=== PATIENT | female | born 1970 | race Caucasian/White ===

== ENCOUNTER 2016-03-12 06:29 | Emergency (ER) | payer OTHER ==
[~2016-03-12] VITALS: Ht 165.1 cm; Wt 62.1 kg
[~2016-03-12 06:29] MED LIST: MULT-884 PO
[2016-03-12 06:35] VITALS: TEMP 36.8; Ht 165.1 cm; Wt 62.1 kg
[2016-03-12] MEDS ORDERED: SODIUM CHLORIDE 0.9% 1000ML 1,000 ML IV SCH (07:00)
--- NOTE | 2016-03-12 07:05 | EMERGENCY ROOM VISIT NOTE ---
History First contact with patient: 06:39 Chief Complaint: URINARY SYMPTOMS Stated Complaint: BLOOD IN URINE,BLADDER PAIN Nursing Triage Summary: pt had uti 2 wks ago, pt c/o blood and red tissue in her urine with frequency and heavy feeling where her bladder is History of Present Illness The patient is a 45 year old female who presents to the Emergency Room with complaints of urinary symptoms. 2 weeks ago, she was diagnosed with a UTI. At that time her presenting complaint was hematuria. She was treated with bactrim. She was doing well until last night, when she suddenly felt the urge to urinate 15 times overnight. She noted on 2 occasions that when she looked into the toilet bowl and the urine was blood tinged with bloody strings. She notes explicitly that she thinks this is urinary and not vaginal discharge. She denies any new vaginal discharge. She also denies any dysuria or burning. She has not had fevers, but does not some nightsweats, which she is unsure is related to urinary tract infection vs being perimenopausal. She does not a dull bilateral CVA dull ache 04/21. She has ongoing low Her appetite has been good. She has chronic issues with constipation. She has not had diarrhea, melena or blood in the stool. Review of Systems A 10 point review of systems was negative unless stated above. Past Medical/Surgical History Medical Problems: (1) Miscarriage (2) Surrogate (3) Vaginal delivery Surgical Problems: (1) H/O laparoscopy Family History Diabetes mellitus Heart disease Mother: Rheumatoid arthritis Social History Smoking Status: Never Smoker Smokeless Tobacco Use: No Alcohol Use: none Drug Use: none Marital Status: , in relationship Housing Status: lives with family Occupation Status: employed Social History: 8 pregnancies; 5 her own pregnancies, 3 surrogate pregnancies Current/Historical Medications Scheduled Cephalexin Monohydrate (Keflex), 500 MG PO BID Cholecalciferol (Vitamin D), 1 TAB PO DAILY Multiple Vitamin (Multi Vitamin Daily), 1 TAB PO DAILY Probiotic Product (Probiotic), 1 CAP PO DAILY Allergies Coded Allergies: Levofloxacin (Verified Allergy, Mild, ITCHING, 03/12/16) ITCHING AND REDNESS AT IV SITE SOON MED WAS HUNG-PER PT CHART Physical Exam Vital Signs Date Time Temp Pulse Resp B/P Pulse Ox O2 Delivery O2 Flow Rate FiO2 03/12/16 10:31 88 16 125/79 98 03/12/16 08:34 83 16 136/99 97 Room Air 03/12/16 06:35 36.8 95 18 137/92 99 Room Air Physical Exam Constitutional: Vital signs as above were reviewed. Eyes: Pupils equal, round, and reactive to light. Extraocular muscles are intact. No proptosis. No photophobia. ENT: Mucous membranes are moist. Oropharynx is clear. No sinus tenderness. TMs are clear bilaterally. Cardiovascular: Heart with a regular rate and rhythm. Pulses are palpable and symmetric in all 4 extremities. No pedal edema appreciated. Respiratory: Lungs clear to auscultation bilaterally. No wheezes, rales, or rhonchi appreciated. No accessory muscle use. No retractions. No increased work of breathing. GI: Abdomen soft, nontender, nondistended. Normal active bowel sounds. No abdominal hernias appreciated. No rebound. No guarding. Moderate suprapubic tenderness to deep palpation : No CVA tenderness appreciated. Musculoskeletal: No midline cervical or vertebral tenderness. No gross deformities. No bony tenderness. No calf swelling or tenderness. Integumentary: Warm, dry, no rashes appreciated. Neurological: Patient awake, alert, and oriented x 3. Cranial nerves two through 12 grossly intact. Motor 5 out of 5 strength bilateral upper and lower extremities. Lymph: No cervical lymphadenopathy appreciated. Medical Decision & Procedures ER Provider Diagnostic Interpretation: RENAL ULTRASOUND HISTORY: Hematuria bladder pain. COMPARISON: None. FINDINGS: Right kidney: 11.4 cm. No hydronephrosis. Normal corticomedullary differentiation and cortical thickness. Left kidney: 11.7 cm. No hydronephrosis. Possible patchy increased cortical echogenicity is again noted. Normal cortical thickness. Bladder: No bladder wall thickening. The bilateral ureteral jets were identified. IMPRESSION: 1. No change from the prior study. 2. No hydronephrosis. 3. Mild patchy areas of increased cortical echogenicity within the left kidney remains unchanged. Therefore, this is likely chronic. Electronically signed by: Young Spear M.D. 03/12/2016 9:45 AM Dictated Date/Time: 03/12/2016 9:41 AM Laboratory Results 03/12/16 07:15 Red Blood Count 4.78, Mean Corpuscular Volume 89.5, Mean Corpuscular Hemoglobin 32.0, Mean Corpuscular Hemoglobin Concent 35.7, Mean Platelet Volume 9.8, Neutrophils (%) (Auto) 47.2, Lymphocytes (%) (Auto) 24.3, Monocytes (%) (Auto) 20.3, Eosinophils (%) (Auto) 7.0, Basophils (%) (Auto) 1.0, Neutrophils # (Auto ) 2.71, Lymphocytes # (Auto) 1.40, Monocytes # (Auto) 1.17, Eosinophils # (Auto ) 0.40, Basophils # (Auto) 0.06 03/12/16 07:15 Test 03/12/16 07:00 03/12/16 07:15 03/12/16 08:44 Urine Color YELLOW Urine Appearance CLEAR (CLEAR) Urine pH 6.0 (4.5-7.5) Urine Specific [place] 1.001 (1.000-1.030) Urine Protein NEG (NEG) Urine Glucose (UA) NEG (NEG) Urine Ketones NEG (NEG) Urine Occult Blood TRACE (NEG) Urine Nitrite NEG (NEG) Urine Bilirubin NEG (NEG) Urine Urobilinogen NEG (NEG) Urine Leukocyte Esterase NEG (NEG) Urine WBC (Auto) 1-5 /hpf (0-5) Urine RBC (Auto) 0-4 /hpf (0-4) Urine Hyaline Casts (Auto) 0 /lpf (0-5) Urine Epithelial Cells (Auto) 10-20 /lpf (0-5) Urine Bacteria (Auto) NEG (NEG) White Blood Count 5.75 K/uL (4.8-10.8) Red Blood Count 4.78 M/uL (4.2-5.4) Hemoglobin 15.3 g/dL (12.0-16.0) Hematocrit 42.8 % (37-47) Mean Corpuscular Volume 89.5 fL (80-100) Mean Corpuscular Hemoglobin 32.0 pg (25-34) Mean Corpuscular Hemoglobin Concent 35.7 g/dl (32-36) Platelet Count 268 K/uL (130-400) Mean Platelet Volume 9.8 fL (7.4-10.4) Neutrophils (%) (Auto) 47.2 % Lymphocytes (%) (Auto) 24.3 % Monocytes (%) (Auto) 20.3 % Eosinophils (%) (Auto) 7.0 % Basophils (%) (Auto) 1.0 % Neutrophils # (Auto) 2.71 K/uL (1.4-6.5) Lymphocytes # (Auto) 1.40 K/uL (1.2-3.4) Monocytes # (Auto) 1.17 K/uL (0.11-0.59) Eosinophils # (Auto) 0.40 K/uL (0-0.5) Basophils # (Auto) 0.06 K/uL (0-0.2) RDW Standard Deviation 42.2 fL (36.4-46.3) RDW Coefficient of Variation 12.9 % (11.5-14.5) Immature Granulocyte % (Auto) 0.2 % Immature Granulocyte # (Auto) 0.01 K/uL (0.00-0.02) Anion Gap 10.0 mmol/L (3-11) Est Creatinine Clear Calc Drug Dose 91.7 ml/min Estimated GFR () 121.0 Estimated GFR (Non- 104.4 BUN/Creatinine Ratio 14.4 (10-20) Calcium Level 9.4 mg/dl (8.5-10.1) Prothrombin Time 11.0 SECONDS (9.0-12.0) Prothromb Time International Ratio 1.0 (0.9-1.1) Activated Partial Thromboplast Time 30.8 SECONDS (21.0-31.0) Partial Thromboplastin Ratio 1.2 Medications Administered Medications (Trade) Dose Ordered Sig/Brittany Route Start Time Stop Time Status Last Admin Dose Admin Sodium Chloride (Nss 1000ml) 1,000 ml @ 999 mls/hr Q1H1M IV 03/12/16 07:00 03/12/16 10:58 DC 03/12/16 07:15 999 MLS/HR ED Course 06:40 - Patient seen Orders: CBC, BMP, UA, 1 L NSS bolus 07:00 - Precepted case with Dr. Pitts 08:00 - Reviewed normal labs with Dr. Pitts 0900 - Discussed labs with patient and recommended renal U/S U/S ordered 09:50 - Renal U/S results reviewed; no acute abnormalities noted 10:20 - Offered speculum examination; patient refusing Recommended following up with PCP or protective signal installer to pelvic/speculum examination; patient agrees 10:30 - Patient discharged in stable condition. Medical Decision A thorough history was obtained, physical examination performed and the EMR was reviewed. The case was reviewed multiple times over with Dr. Parag Pitts during the patient's ED visit. 45 year old female who presents with hematuria. Differential diagnosis includes urinary tract infection, pyelonephritis, renal stone, glomerulonephritis (nephrotic syndrome vs. nephritic syndrome). UA did reveal small amount of blood. There was not evidence of overt UTI such as leukocyte esterase and nitrites. Cultures to be sent for confirmatory testing. We had considered vaginal source including STI, cervicitis, cervical polyp, cervical neoplasm, vaginal polyps or intrauterine abnormality. We strongly recommended a speculum and pelvic examination but patient declined because she had seen her protective signal installer 2 weeks ago with normal PAP and speculum examination. We did advise her of the possibility of interval developments and our considerations of above diagnostic possibility but patient maintained she did not want the speculum examination. We did recommend she see either her PCP or her protective signal installer if she continues to experience blood in the urine with or without strongly clot. Coagulation studies were negative. Patient was treated empirically for UTI with Keflex. Patient was discharged in stable conditions with instructions on if and when to see PCP or return to ED. Impression Primary Impression: Hematuria Additional Impression: UTI (urinary tract infection) Departure Information Dispostion Home / Self-Care Condition GOOD Prescriptions Cephalexin Monohydrate (KEFLEX) 500 Mg Cap 500 MG PO BID for 7 Days, #14 CAP Prov: Torres Bucio MD 03/12/16 Referrals Evie Longo M.D. (PCP) Patient Instructions My [facility] Additional Instructions You came to the emergency department for blood in the urine. You we checked your urine which did show blood but no overt evidence of infection. We will send this for culture because you have a history of urinary tract infection 2 weeks that started with similar symptoms. We also did an ultrasound of your bladder and kidneys which was grossly normal. We checked your labwork, which was all normal, including your kidney function. We will treat you for urinary tract infection at this time. You will be prescribed Keflex for 7 days. We did discuss doing a pelvic and speculum examination to rule out vaginal/ cervical causes but you did not want to do that at this time as you have recently been seen by your protective signal installer, and had a normal pap. We strongly encourage you to follow-up with your PCP or protective signal installer if your symptoms persist despite antibiotics as they may have further recommendations. If your symptoms fail to improve, acutely worsen, please seek medical attention immediately by either calling your primary care provider or going to your nearest emergency department. Otherwise, please see your primary care provider in 3-5 days to ensure that your symptoms continue to improve. Problem Qualifiers
[2016-03-12 07:32] LABS: BASO ABS # 0.06 K/uL (0-0.2); COMPLETE YES; HEMATOCRIT 42.8 % (37-47); IG% 0.2 %; LYMPH % 24.3 %; MEAN CELL VOLUME 89.5 fL (80-100); MEAN CORPUSCULAR HGB CONC 35.7 g/dl (32-36); MEAN PLATELET VOLUME 9.8 fL (7.4-10.4); MONO % 20.3 %; NEUT % 47.2 %; PLATELET COUNT 268 K/uL (130-400); RED BLOOD COUNT 4.78 M/uL (4.2-5.4); WHITE BLOOD COUNT 5.75 K/uL (4.8-10.8)
[2016-03-12 07:40] LABS: URINE APPEARANCE CLEAR (CLEAR); URINE BILIRUBIN NEG (NEG); URINE COLOR YELLOW; URINE NITRITE NEG (NEG); URINE SPECIFIC GRAVITY 1.001 (1.000-1.030); UROBILINOGEN NEG (NEG); ZZUR CULT IF INDIC CLEAN CATCH NO
[2016-03-12 07:41] LABS: MANUAL MICROSCOPIC REQUIRED? NO; REVIEW REQ? NO
[2016-03-12 07:48] LABS: BUN/CREATININE RATIO 14.4 (10-20); CALCIUM 9.4 mg/dl (8.5-10.1); CREATININE 0.69 mg/dl (0.60-1.20); POTASSIUM 3.7 mmol/L (3.5-5.1)
[2016-03-12] MEDS ORDERED: PROB1TAB16 PO (07:52)
[2016-03-12] MEDS ORDERED: CHOL100010 PO (07:52)
[2016-03-12 09:29] LABS: PARTIAL THROMBOPLASTIN RATIO 1.2
--- NOTE | 2016-03-12 09:46 | DIAGNOSTIC IMAGING REPORT ---
RENAL ULTRASOUND HISTORY: Hematuria bladder pain. COMPARISON: None. FINDINGS: Right kidney: 11.4 cm. No hydronephrosis. Normal corticomedullary differentiation and cortical thickness. Left kidney: 11.7 cm. No hydronephrosis. Possible patchy increased cortical echogenicity is again noted. Normal cortical thickness. Bladder: No bladder wall thickening. The bilateral ureteral jets were identified. IMPRESSION: 1. No change from the prior study. 2. No hydronephrosis. 3. Mild patchy areas of increased cortical echogenicity within the left kidney remains unchanged. Therefore, this is likely chronic. Electronically signed by: Young Spear M.D. 03/12/2016 9:45 AM Dictated Date/Time: 03/12/2016 9:41 AM
[2016-03-12] MEDS ORDERED: CEPH500C2 PO (10:24)
[2016-03-12 10:31] VITALS: BP 125/79; PULSE 88; O2SAT 98
--- NOTE | 2016-03-12 14:47 | EMERGENCY ROOM VISIT NOTE ---
History Report prepared by Sonam: Noman Paz Under the Supervision of: Toni OliveiraO. First contact with patient: 06:39 Chief Complaint: URINARY SYMPTOMS Stated Complaint: BLOOD IN URINE,BLADDER PAIN Nursing Triage Summary: pt had uti 2 wks ago, pt c/o blood and red tissue in her urine with frequency and heavy feeling where her bladder is History of Present Illness The patient is a 45 year old female who presents to the Emergency Room with complaints of sudden urinary symptoms occurring last night. The patient states that she has been having increased frequency with urination, and there is a little bit of bloody tissue in her urine. The patient denies any vaginal discharge or pain with urination. The patient states that she had a UTI two weeks ago which was treated with Bactrim, and she states that these symptoms are similar to the previous UTI. The patient states that she is additionally having some pressure in her bladder. She additionally states that she has been having some back pain, however she states that she normally has back pain. The patient states that she normally has very regular periods. She states that she has had two or three other UTIs in the past, and she states that she has a history of 8 pregnancies, a cholecystectomy, and a renal stone in 2010. Pt denies headache, change in vision, fevers, chest pain, shortness of breath, nausea, vomiting, diarrhea, and melena. Source of History: patient Onset: last night Position: other (global) Quality: other (urinary symptoms) Timing: other (sudden) Associated Symptoms: + back pain Note: Associated symptoms: Bladder pressure Review of Systems See HPI for pertinent positives & negatives. A total of 10 systems reviewed and were otherwise negative. Past Medical & Surgical Medical Problems: (1) Miscarriage (2) Surrogate (3) Vaginal delivery Surgical Problems: (1) H/O laparoscopy Family History Diabetes mellitus Heart disease Social History Smoking Status: Never Smoker Alcohol Use: none Drug Use: none Marital Status: in relationship Housing Status: lives with family Occupation Status: employed Current/Historical Medications Scheduled Cephalexin Monohydrate (Keflex), 500 MG PO BID Cholecalciferol (Vitamin D), 1 TAB PO DAILY Multiple Vitamin (Multi Vitamin Daily), 1 TAB PO DAILY Probiotic Product (Probiotic), 1 CAP PO DAILY Allergies Coded Allergies: Levofloxacin (Verified Allergy, Mild, ITCHING, 03/12/16) ITCHING AND REDNESS AT IV SITE SOON MED WAS HUNG-PER PT CHART Physical Exam Vital Signs Date Time Temp Pulse Resp B/P Pulse Ox O2 Delivery O2 Flow Rate FiO2 03/12/16 10:31 88 16 125/79 98 03/12/16 08:34 83 16 136/99 97 Room Air 03/12/16 06:35 36.8 95 18 137/92 99 Room Air Physical Exam GENERAL: Sitting up in bed, alert, well appearing, well nourished, no distress, non-toxic EYE EXAM: normal conjunctiva OROPHARYNX: no exudate, no erythema, lips, buccal mucosa, and tongue normal and mucous membranes are moist NECK: supple, no nuchal rigidity, no adenopathy, non-tender LUNGS: Clear to auscultation. Normal chest wall mechanics HEART: no murmurs, S1 normal and S2 normal ABDOMEN: abdomen soft, non-tender, normo-active bowel sounds, no masses, no rebound or guarding. BACK: Back is symmetrical on inspection and there is no deformity, no midline tenderness, no CVA tenderness. SKIN: no rashes and no bruising UPPER EXTREMITIES: upper extremities are grossly normal. LOWER EXTREMITIES: No pitting edema. NEURO EXAM: Normal sensorium, cranial nerves II-XII grossly intact, normal speech, no gross weakness of arms, no gross weakness of legs. Gross sensation intact. Medical Decision & Procedures ER Provider Diagnostic Interpretation: US results have been interpreted by the radiologist and reviewed by me. RENAL ULTRASOUND HISTORY: Hematuria bladder pain. COMPARISON: None. FINDINGS: Right kidney: 11.4 cm. No hydronephrosis. Normal corticomedullary differentiation and cortical thickness. Left kidney: 11.7 cm. No hydronephrosis. Possible patchy increased cortical echogenicity is again noted. Normal cortical thickness. Bladder: No bladder wall thickening. The bilateral ureteral jets were identified. IMPRESSION: 1. No change from the prior study. 2. No hydronephrosis. 3. Mild patchy areas of increased cortical echogenicity within the left kidney remains unchanged. Therefore, this is likely chronic. Electronically signed by: Young Spear M.D. 03/12/2016 9:45 AM Dictated Date/Time: 03/12/2016 9:41 AM Laboratory Results 03/12/16 07:15 Red Blood Count 4.78, Mean Corpuscular Volume 89.5, Mean Corpuscular Hemoglobin 32.0, Mean Corpuscular Hemoglobin Concent 35.7, Mean Platelet Volume 9.8, Neutrophils (%) (Auto) 47.2, Lymphocytes (%) (Auto) 24.3, Monocytes (%) (Auto) 20.3, Eosinophils (%) (Auto) 7.0, Basophils (%) (Auto) 1.0, Neutrophils # (Auto ) 2.71, Lymphocytes # (Auto) 1.40, Monocytes # (Auto) 1.17, Eosinophils # (Auto ) 0.40, Basophils # (Auto) 0.06 03/12/16 07:15 Test 03/12/16 07:00 03/12/16 07:15 03/12/16 08:44 Urine Color YELLOW Urine Appearance CLEAR (CLEAR) Urine pH 6.0 (4.5-7.5) Urine Specific [place] 1.001 (1.000-1.030) Urine Protein NEG (NEG) Urine Glucose (UA) NEG (NEG) Urine Ketones NEG (NEG) Urine Occult Blood TRACE (NEG) Urine Nitrite NEG (NEG) Urine Bilirubin NEG (NEG) Urine Urobilinogen NEG (NEG) Urine Leukocyte Esterase NEG (NEG) Urine WBC (Auto) 1-5 /hpf (0-5) Urine RBC (Auto) 0-4 /hpf (0-4) Urine Hyaline Casts (Auto) 0 /lpf (0-5) Urine Epithelial Cells (Auto) 10-20 /lpf (0-5) Urine Bacteria (Auto) NEG (NEG) White Blood Count 5.75 K/uL (4.8-10.8) Red Blood Count 4.78 M/uL (4.2-5.4) Hemoglobin 15.3 g/dL (12.0-16.0) Hematocrit 42.8 % (37-47) Mean Corpuscular Volume 89.5 fL (80-100) Mean Corpuscular Hemoglobin 32.0 pg (25-34) Mean Corpuscular Hemoglobin Concent 35.7 g/dl (32-36) Platelet Count 268 K/uL (130-400) Mean Platelet Volume 9.8 fL (7.4-10.4) Neutrophils (%) (Auto) 47.2 % Lymphocytes (%) (Auto) 24.3 % Monocytes (%) (Auto) 20.3 % Eosinophils (%) (Auto) 7.0 % Basophils (%) (Auto) 1.0 % Neutrophils # (Auto) 2.71 K/uL (1.4-6.5) Lymphocytes # (Auto) 1.40 K/uL (1.2-3.4) Monocytes # (Auto) 1.17 K/uL (0.11-0.59) Eosinophils # (Auto) 0.40 K/uL (0-0.5) Basophils # (Auto) 0.06 K/uL (0-0.2) RDW Standard Deviation 42.2 fL (36.4-46.3) RDW Coefficient of Variation 12.9 % (11.5-14.5) Immature Granulocyte % (Auto) 0.2 % Immature Granulocyte # (Auto) 0.01 K/uL (0.00-0.02) Anion Gap 10.0 mmol/L (3-11) Est Creatinine Clear Calc Drug Dose 91.7 ml/min Estimated GFR () 121.0 Estimated GFR (Non- 104.4 BUN/Creatinine Ratio 14.4 (10-20) Calcium Level 9.4 mg/dl (8.5-10.1) Prothrombin Time 11.0 SECONDS (9.0-12.0) Prothromb Time International Ratio 1.0 (0.9-1.1) Activated Partial Thromboplast Time 30.8 SECONDS (21.0-31.0) Partial Thromboplastin Ratio 1.2 Laboratory results per my review. Medications Administered Medications (Trade) Dose Ordered Sig/Brittany Route Start Time Stop Time Status Last Admin Dose Admin Sodium Chloride (Nss 1000ml) 1,000 ml @ 999 mls/hr Q1H1M IV 03/12/16 07:00 03/12/16 10:58 DC 03/12/16 07:15 999 MLS/HR ED Course ED COURSE: Vital signs were reviewed and showed normal vitals The patients medical record was reviewed The above diagnostic studies were performed and reviewed. ED treatments and interventions as stated above. 0700: Sodium Chloride 1000 ml @ 999 mls/hr IV 0701: The patient was evaluated in room B6. A complete history and physical examination was performed. 1021: Upon reevaluation, the patient is resting.I discussed my findings with the patient and she understands and agrees with the treatment plan. Based on the patients age, coexisting illnesses, exam and lab findings the decision to treat as an outpatient was made. The patient remained stable while under my care. The patient appeared well at the time of discharge. Medical Decision Differential diagnoses includes but is not limited to gastritis, peptic ulcer disease, GERD, gallbladder disease, pancreatitis, small bowel obstruction, acute coronary syndrome, pericarditis, ischemic bowel, irritable bowel disease, irritable bowel syndrome, appendicitis, diverticulitis, malignancy, hernia, urinary tract infection, torsion, /ectopic , perforation, trauma, infectious. Patient is a 45-year-old female who presents the ER for urinary frequency along with blood in urine. She notes that she had this about 2 weeks ago which time she is diagnosed with a UTI. Patient has no other complaints at this time. She does have some chronic lower back pain. Labs show no significant leukocytosis or anemia. BMP along with INR was unremarkable. UA did show hematuria. There is no other signs of infection. Presentation was not consistent with a stone. Vitals are stable. He also was unremarkable. Based on her symptoms as she notes that she never has dysuria with her UTIs but only frequency and urgency I did elect to treat her with antibiotics. She is given a dose in ER and discharged with oral antibiotics for UTI. Discussed with Pt concerning signs and symptoms to watch out for. Pt was instructed to follow up with their PCP and discussed with the patient their option to return to the ED at anytime for persistent or worsening symptoms. The appropriate anticipatory guidance and out-patient management, including indications for return to the emergency department, were explained at length to the patient and understood. Impression Primary Impression: UTI (urinary tract infection) Additional Impressions: Hematuria Urinary frequency Scribe Attestation The scribe's documentation has been prepared under my direction and personally reviewed by me in its entirety. I confirm that the note above accurately reflects all work, treatment, procedures, and medical decision making performed by me. Departure Information Dispostion Home / Self-Care Prescriptions Cephalexin Monohydrate (KEFLEX) 500 Mg Cap 500 MG PO BID for 7 Days, #14 CAP Prov: Torres Bucio MD 03/12/16 Referrals Evie Longo M.D. (PCP) Forms HOME CARE DOCUMENTATION FORM, IMPORTANT VISIT INFORMATION Patient Instructions My [facility] Additional Instructions You came to the emergency department for blood in the urine. You we checked your urine which did show blood but no overt evidence of infection. We will send this for culture because you have a history of urinary tract infection 2 weeks that started with similar symptoms. We also did an ultrasound of your bladder and kidneys which was grossly normal. We checked your labwork, which was all normal, including your kidney function. We will treat you for urinary tract infection at this time. You will be prescribed Keflex for 7 days. We did discuss doing a pelvic and speculum examination to rule out vaginal/ cervical causes but you did not want to do that at this time as you have recently been seen by your parimutuel ticket seller, and had a normal pap. We strongly encourage you to follow-up with your PCP or parimutuel ticket seller if your symptoms persist despite antibiotics as they may have further recommendations. If your symptoms fail to improve, acutely worsen, please seek medical attention immediately by either calling your primary care provider or going to your nearest emergency department. Otherwise, please see your primary care provider in 3-5 days to ensure that your symptoms continue to improve. Problem Qualifiers Primary Impression: UTI (urinary tract infection) Urinary tract infection type: acute cystitis Hematuria presence: with hematuria Qualified Codes: N30.01 - Acute cystitis with hematuria
== END 2016-03-12 10:32 | disposition home or self-care (01) ==
LOC: C.EDB 06:30
DX: N39.0 Urinary tract infection, site not specified (principal); R31.9 Hematuria, unspecified

== ENCOUNTER → 2016-08-09 | Outpatient (CLI) | payer OTHER ==
[~2016-08-09] MED LIST changes: +CHOL100010 PO; +OMEP20CA9 PO; +PROB1TAB16 PO
== END | disposition home or self-care (01) ==
LOC: C.PATHSPEC 15:57
PROVIDERS: ATTEND Obstetrics & Gynecology
DX: R93.8 Abnormal findings on diagnostic imaging of other specified body structures (principal)

== ENCOUNTER 2016-11-06 20:50 | Emergency (ER) | payer OTHER ==
[~2016-11-06] VITALS: Ht 165.1 cm; Wt 63.6 kg
[~2016-11-06 20:50] MED LIST changes: -OMEP20CA9 PO
[2016-11-06 21:06] VITALS: TEMP 36.9; Ht 165.1 cm; Wt 63.6 kg
[2016-11-06 22:25] LABS: BASO % 0.3 %; BASO ABS # 0.03 K/uL (0-0.2); COMPLETE YES; EOS % 3.6 %; IG% 0.1 %; LYMPH ABS # 2.66 K/uL (1.2-3.4); MEAN CELL VOLUME 91.1 fL (80-100); MEAN CORPUSCULAR HEMOGLOBIN 31.3 pg (25-34); MEAN CORPUSCULAR HGB CONC 34.4 g/dl (32-36); MEAN PLATELET VOLUME 9.5 fL (7.4-10.4); MONO % 11.5 %; NEUT % 55.5 %; PLATELET COUNT 307 K/uL (130-400); WHITE BLOOD COUNT 9.16 K/uL (4.8-10.8)
--- NOTE | 2016-11-06 22:32 | DIAGNOSTIC IMAGING REPORT ---
CHEST ONE VIEW PORTABLE CLINICAL HISTORY: Atypical chest pain COMPARISON STUDY: 08/29/2015 FINDINGS: The cardiac and mediastinal contours are normal. There is no evidence of focal pulmonary consolidation. There is no evidence of failure. No pleural effusions are visualized.[ IMPRESSION: No active disease in the chest. Electronically signed by: Rony Berman M.D. 11/06/2016 10:31 PM Dictated Date/Time: 11/06/2016 10:31 PM
[2016-11-06 22:39] LABS: POINT OF CARE TROPONIN I < 0.030 ng/ml (0-0.045)
[2016-11-06 22:44] LABS: BUN/CREATININE RATIO 14.9 (10-20); CALCIUM 9.2 mg/dl (8.5-10.1); CREATININE 0.79 mg/dl (0.60-1.20); POTASSIUM 3.7 mmol/L (3.5-5.1)
[2016-11-06 22:46] LABS: PARTIAL THROMBOPLASTIN RATIO 1.1; PROTHROMBIN TIME (PATIENT) 10.6 SECONDS (9.0-12.0)
[2016-11-06 22:47] LABS: ALB/GLOB RATIO 1.1 (0.9-2)
[2016-11-06] MEDS ORDERED: OPTIRAY 320 IV PRN (23:00)
[2016-11-07] MEDS ORDERED: OMEP20CA9 PO (00:04)
--- NOTE | 2016-11-07 00:05 | EMERGENCY ROOM VISIT NOTE ---
History First contact with patient: 21:34 Chief Complaint: CHEST PAIN Stated Complaint: CHEST TIGHTNESS & BACK PAIN Nursing Triage Summary: dx with bronchitis last week. states cough is better but now has chest pressure and pain between her shoulder blades. History of Present Illness The patient is a 46 year old female who presents to the Emergency Room with complaints of pain between the shoulder blades which has been ongoing for several weeks. The patient states that over the past week, she has also developed chest tightness. She did have a cough but states this has improved. She was seen by her primary care provider last week and diagnosed with bronchitis. She states that the cough has improved but the chest tightness and back pain has persisted. She reports the chest pain comes and goes and is sometimes associated with shortness of breath. She rates her discomfort a 7/ 10. She denies any history of heart or lung problems. She does report a family history of heart problems. She is seen by cardiology due to her extensive family history and has an appointment in a few weeks for a stress echo. She has had stress tests in the past and states they have been normal. She does not smoke. She does not take control pills. She denies any recent travel. She states that she occasionally has some pain in her epigastric region. She denies any nausea or vomiting. Review of Systems A complete 10 point review of systems was reviewed with the patient with pertinent positives and negatives as per history of present illness. All else were negative. Past Medical/Surgical History Medical Problems: (1) Miscarriage (2) Surrogate (3) Vaginal delivery Surgical Problems: (1) H/O laparoscopy Family History Diabetes mellitus Heart disease Social History Smoking Status: Never Smoker Alcohol Use: none Drug Use: none Marital Status: in relationship Housing Status: lives with family Occupation Status: employed Current/Historical Medications Scheduled Cholecalciferol (Vitamin D), 1 TAB PO DAILY Multiple Vitamin (Multi Vitamin Daily), 1 TAB PO DAILY Omeprazole (Prilosec), 1 CAP PO DAILY Probiotic Product (Probiotic), 1 CAP PO DAILY Physical Exam Vital Signs Date Time Temp Pulse Resp B/P (MAP) Pulse Ox O2 Delivery O2 Flow Rate FiO2 11/07/16 00:10 82 18 121/96 98 11/07/16 00:01 86 18 122/87 99 Room Air 11/06/16 23:11 84 11/06/16 23:04 82 18 138/87 99 11/06/16 22:36 91 16 130/92 99 Room Air 11/06/16 21:06 36.9 89 18 132/87 99 Room Air Physical Exam VITALS: Vitals are noted on the nurse's note and reviewed by myself. Vital signs stable. GENERAL: This is a 46-year-old female, in no acute distress, nondiaphoretic, well-developed well-nourished. SKIN: Capillary reflex less than 2 seconds. HEENT: Normocephalic. PERRLA. EOMI. Neck is supple without nuchal rigidity. HEART: Regular rate and rhythm without murmurs gallops or rubs. LUNGS: Clear to auscultation bilaterally without wheezes, rales or rhonchi. ABDOMEN: Positive bowel sounds x 4. Soft, nontender to palpation. NEURO: Patient was alert and oriented to person place and time. Medical Decision & Procedures ER Provider Diagnostic Interpretation: CHEST ONE VIEW PORTABLE FINDINGS: The cardiac and mediastinal contours are normal. There is no evidence of focal pulmonary consolidation. There is no evidence of failure. No pleural effusions are visualized.[ IMPRESSION: No active disease in the chest. CT CHEST WITH CONTRAST: No central pulmonary embolus. No aortic aneurysm or dissection. No effusion or consolidation. Cholecystectomy. Radiologist: Adelita Overton MD Laboratory Results 11/06/16 22:14 Red Blood Count 4.50, Mean Corpuscular Volume 91.1, Mean Corpuscular Hemoglobin 31.3, Mean Corpuscular Hemoglobin Concent 34.4, Mean Platelet Volume 9.5, Neutrophils (%) (Auto) 55.5, Lymphocytes (%) (Auto) 29.0, Monocytes (%) (Auto) 11.5, Eosinophils (%) (Auto) 3.6, Basophils (%) (Auto) 0.3, Neutrophils # (Auto ) 5.08, Lymphocytes # (Auto) 2.66, Monocytes # (Auto) 1.05, Eosinophils # (Auto ) 0.33, Basophils # (Auto) 0.03 11/06/16 22:14 Test 11/06/16 22:14 11/06/16 22:21 White Blood Count 9.16 K/uL (4.8-10.8) Red Blood Count 4.50 M/uL (4.2-5.4) Hemoglobin 14.1 g/dL (12.0-16.0) Hematocrit 41.0 % (37-47) Mean Corpuscular Volume 91.1 fL (80-100) Mean Corpuscular Hemoglobin 31.3 pg (25-34) Mean Corpuscular Hemoglobin Concent 34.4 g/dl (32-36) Platelet Count 307 K/uL (130-400) Mean Platelet Volume 9.5 fL (7.4-10.4) Neutrophils (%) (Auto) 55.5 % Lymphocytes (%) (Auto) 29.0 % Monocytes (%) (Auto) 11.5 % Eosinophils (%) (Auto) 3.6 % Basophils (%) (Auto) 0.3 % Neutrophils # (Auto) 5.08 K/uL (1.4-6.5) Lymphocytes # (Auto) 2.66 K/uL (1.2-3.4) Monocytes # (Auto) 1.05 K/uL (0.11-0.59) Eosinophils # (Auto) 0.33 K/uL (0-0.5) Basophils # (Auto) 0.03 K/uL (0-0.2) RDW Standard Deviation 42.9 fL (36.4-46.3) RDW Coefficient of Variation 12.8 % (11.5-14.5) Immature Granulocyte % (Auto) 0.1 % Immature Granulocyte # (Auto) 0.01 K/uL (0.00-0.02) Prothrombin Time 10.6 SECONDS (9.0-12.0) Prothromb Time International Ratio 1.0 (0.9-1.1) Activated Partial Thromboplast Time 27.6 SECONDS (21.0-31.0) Partial Thromboplastin Ratio 1.1 Anion Gap 9.0 mmol/L (3-11) Est Creatinine Clear Calc Drug Dose 79.2 ml/min Estimated GFR () 103.3 Estimated GFR (Non- 89.1 BUN/Creatinine Ratio 14.9 (10-20) Calcium Level 9.2 mg/dl (8.5-10.1) Total Bilirubin 0.3 mg/dl (0.2-1) Aspartate Amino Transf (AST/SGOT) 15 U/L (15-37) Alanine Aminotransferase (ALT/SGPT) 22 U/L (12-78) Alkaline Phosphatase 80 U/L (45-117) Total Protein 7.7 gm/dl (6.4-8.2) Albumin 4.0 gm/dl (3.4-5.0) Globulin 3.7 gm/dl (2.5-4.0) Albumin/Globulin Ratio 1.1 (0.9-2) Bedside D-Dimer > 450 ng/mlFEU (0-450) Bedside Troponin I < 0.030 ng/ml (0-0.045) ECG Indication: chest pain Rate (beats per minute): 85 Rhythm: normal sinus Findings: no acute ischemic change, no ectopy Medical Decision Differential diagnosis includes bronchitis, pneumonia, malignancy, asthma, COPD , pulmonary embolism, ACS, among others. The patient is a 46-year-old female who presents today complaining of chest pain , back pain and shortness of breath. Labs revealed no leukocytosis, anemia or concerning electrolyte abnormalities. Troponin was not elevated. D-dimer was found to be elevated and the CTA of the chest was performed. This was read by statrad with no acute findings. EKG was unremarkable. Patient's symptoms may be secondary to GERD and she was instructed to start a PPI for this. She will follow-up with her primary care provider for further evaluation. She was instructed to return here for any worsening or new/concerning symptoms. The patient's case was reviewed with Dr. Tolliver, ED attending physician, who agreed with my assessment and treatment plan. Based on the patient's presentation and work up, I feel the patient is stable for outpatient treatment. The patient was educated to return to the emergency department for any worsening of their current condition or new/concerning symptoms. She will follow up with her PCP. Medication Reconcilliation Current Medication List: was personally reviewed by me Blood Pressure Screening Patient's blood pressure: Normal blood pressure Impression Primary Impression: Retrosternal chest pain Departure Information Dispostion Home / Self-Care Condition GOOD Prescriptions Omeprazole (PRILOSEC) 20 Mg Cap 1 CAP PO DAILY for 14 Days, #14 CAP Prov: Brooklyn Zamora .BRAD 11/07/16 Referrals Mat Torres M.D. (PCP) Patient Instructions [facility] [place] [facility] Additional Instructions Omeprazole daily. Take this in the morning before you eat anything. For pain control, you can use the following [id number] medicines (if >12 yo): - Regular strength (325mg/tab) Tylenol (acetaminophen) 2 tabs every 4-6 hours as needed. Do not exceed 12 tablets in a 24 hour period. Avoid taking more than 4 grams (4000 mg) of Tylenol per day. This includes any other sources of acetaminophen you may take on a regular basis. - Regular strength (200 mg/tab) Advil (ibuprofen) 1-2 tabs every 4-6 hours as needed. Do not exceed a dose of 3200 mg per day. Follow-up with your primary care provider this week. Return to the emergency department with any worsening or new/concerning symptoms.
[2016-11-07 00:10] VITALS: BP 121/96; PULSE 82; O2SAT 98
--- NOTE | 2016-11-07 06:21 | DIAGNOSTIC IMAGING REPORT ---
(CHEST FOR PE) ANGIO WITH CT DOSE: 204.98 mGy.cm HISTORY: Chest pain dyspnea TECHNIQUE: Multiaxial CT images of the chest were performed following the intravenous administration of contrast to evaluate the pulmonary arteries. Maximal intensity projection images were also obtained. A dose lowering technique was utilized adhering to the principles of ALARA. COMPARISON STUDY: None. FINDINGS: There is a normal caliber thoracic aorta with no evidence for dissection. There is no evidence for pulmonary embolus. No pleural effusions. No pneumothorax. The liver and spleen are unremarkable. No mediastinal or hilar lymphadenopathy. The central airways are patent. The lungs are clear. IMPRESSION: No evidence for pulmonary embolus. The lungs are clear. The above report was generated using voice recognition software. It may contain grammatical, syntax or spelling errors. Electronically signed by: Chriss Porter M.D. 11/07/2016 6:20 AM Dictated Date/Time: 11/07/2016 6:18 AM
== END 2016-11-07 00:11 | disposition home or self-care (01) ==
LOC: C.EDB 20:51 → C.EDC 11-07 00:11
DX: R07.9 Chest pain, unspecified (principal); Z83.3 Family history of diabetes mellitus

== ENCOUNTER → 2016-12-21 | Outpatient (CLI) | payer OTHER ==
[2016-12-21 14:43] LABS: URINE APPEARANCE CLEAR (CLEAR); URINE BILIRUBIN NEG (NEG); URINE COLOR YELLOW; URINE NITRITE NEG (NEG); UROBILINOGEN NEG (NEG)
[2016-12-21 14:53] LABS: MANUAL MICROSCOPIC REQUIRED? NO; REVIEW REQ? NO
== END | disposition home or self-care (01) ==
LOC: C.LABSPEC 13:39
PROVIDERS: ATTEND Physician Assistant
DX: R10.2 Pelvic and perineal pain (principal)

== ENCOUNTER → 2017-05-21 | Outpatient (CLI) | payer OTHER | END | disposition home or self-care (01) | LOC: C.PAPS 14:43 | PROVIDERS: ATTEND Obstetrics & Gynecology | DX: Z12.4 Encounter for screening for malignant neoplasm of cervix (principal); R87.610 Atypical squamous cells of undetermined significance on cytologic smear of cervix (ASC-US) ==